=== PATIENT | female | born 1975 | race Hispanic/Latino ===

== ENCOUNTER → 2023-06-16 | Day surgery (SDC) | payer OTHER ==
[~2023-06-16] MED LIST: GABAPENTIN100 MG PO; HYDROXYCHLOROQ200 MG PO; HYOSCYAMINE SULFATE 0.5 MG/ML INJ ONE; IMURAN50 MG PO; LACTATED RINGER'S 1,000 ML ONE; LIDOCAINE HCL 2% LOCAL INJ 5 ML SDV VIAL INJ ONE; MELOXICAM7.5 MG PO; PROPOFOL IV EMULSION 10 MG/ML 20 ML VIAL ONE
[2023-06-16 12:01] VITALS: TEMP 96.9
[2023-06-16 12:30] VITALS: BP 101/68; PULSE 84; RESP 18; O2SAT 100
== END | disposition home or self-care (01) ==
LOC: OR 09:21
PROVIDERS: ATTEND Internal Medicine Gastroenterology
DX: Z12.11 Encounter for screening for malignant neoplasm of colon (principal); D12.2 Benign neoplasm of ascending colon; K29.50 Unspecified chronic gastritis without bleeding; B96.81 Helicobacter pylori [H. pylori] as the cause of diseases classified elsewhere; K20.90 Esophagitis, unspecified without bleeding; K21.9 Gastro-esophageal reflux disease without esophagitis; K64.8 Other hemorrhoids; Z71.3 Dietary counseling and surveillance; M32.9 Systemic lupus erythematosus, unspecified; Z01.810 Encounter for preprocedural cardiovascular examination; Z79.1 Long term (current) use of non-steroidal anti-inflammatories (NSAID); Z79.899 Other long term (current) drug therapy
CPT/HCPCS: 43239; 45385; 81025; 93005; J1980; J2001; J2704; J7121; 45378